=== PATIENT | female | born 1960 | race Caucasian/White ===

== ENCOUNTER → 2017-06-09 | Outpatient (CLI) | payer BC ==
--- NOTE | 2017-06-09 09:30 | RADIOLOGY REPORT (SQ) ---
EXAM DESCRIPTION: CT ABD/PELVIS WITH IV ORAL COMPLETED DATE/TIME: 06/09/2017 8:21 am REASON FOR STUDY: LUQ PAIN (R10.12) R10.12 LEFT UPPER QUADRANT PAIN COMPARISON: November 2015 TECHNIQUE: CT scan of the abdomen and pelvis performed using helical scanning technique with dynamic intravenous contrast injection and oral contrast. Images reviewed with lung, soft tissue, and bone w indows. Reconstructed coronal and sagittal MPR images reviewed. Delayed images for evaluation of the urinary system also acquired. All images stored on PACS. All CT scanners at this facility use dose modulation, iterative reconstruction, and/or weight based d osing when appropriate to reduce radiation dose to as low as reasonably achievable (ALARA). [facility]: Dose Right [facility]: CareDose [facility]: Dose Right [facility]: Teradose 4D [facility]: mphoria CONTRAST TYPE AND DOSE: contrast/concentration: Isovue 370.00 mg/ml; Total Contrast Delivered: 100.0 ml; Total Saline Delivered: 62.0 ml RENAL FUNCTION: Creatinine 0.7 RADIATION DOSE: CT Rad equipment meets quality standard of care and radiation dose reduction techniq ues were employed. CTDIvol: 14.1 - 16.2 mGy. DLP: 1512 mGy-cm.. LIMITATIONS: None. FINDINGS: LOWER CHEST: No significant findings. No nodules or infiltrates. LIVER: There is a focal area of contrast enhancement in the right lobe of the liver inferiorly best s een on image number 33 in the arterial phase which is not identified on the delayed images. A smalle r area of similar appearance was identified on the previous study. The differential possibilities wo uld include an hepatic hemangioma, transient hepatic attenuation difference, or a hypervascular mass. If clinically warranted MRI may be of value for further evaluation. No other focal hepatic abnorma lities were identified. SPLEEN: Normal size. No focal lesions. PANCREAS: No masses. No significant calcifications. No adjacent inflammation or peripancreatic fluid collections. Pancreatic duct not dilated. GALLBLADDER: No identified stones by CT criteria. No inflammatory changes to suggest cholecystitis. ADRENAL GLANDS: No significant masses or asymmetry. RIGHT KIDNEY AND URETER: No solid masses. No significant calcifications. No hydronephrosis or hyd roureter. LEFT KIDNEY AND URETER: No solid masses. No significant calcifications. No hydronephrosis or hydr oureter. AORTA AND VESSELS: No aneurysm. No dissection. Renal arteries, SMA, celiac without stenosis. RETROPERITONEUM: No retroperitoneal adenopathy, hemorrhage or masses. BOWEL AND PERITONEAL CAVITY: No masses or inflammatory changes. No free fluid or peritoneal masses. APPENDIX: Normal. PELVIS: No mass. No free fluid. Normal bladder. ABDOMINAL WALL: No masses. No hernias. BONES: No significant or acute findings. OTHER: No other significant finding. IMPRESSION: Focal area of contrast enhancement in the right lobe of the liver as noted above with di fferential possibilities as noted above. If further workup is deemed clinically warranted I would re commend MRI. No other significant intra-abdominal or pelvic abnormalities were identified. Other fi ndings as noted above. TECHNICAL DOCUMENTATION: JOB ID: [id number] Quality ID # [id number]: Final reports with documentation of one or more dose reduction techniques (e.g., Au tomated exposure control, adjustment of the mA and/or kV according to patient size, use of iterative reconstruction technique) 2010 [employer]- All Rights Reserved
== END ==
LOC: RAD 07:39
PROVIDERS: ATTEND Surgery
DX: R10.12 Left upper quadrant pain (principal)
CPT/HCPCS: 74177; 82565

== ENCOUNTER → 2017-06-19 | Outpatient (CLI) | payer BC ==
--- NOTE | 2017-06-19 11:33 | RADIOLOGY REPORT (SQ) ---
EXAM DESCRIPTION: MRI ABDOMEN WITH COMPLETED DATE/TIME: 06/19/2017 9:24 am REASON FOR STUDY: LIVER LESION K76.89 OTHER SPECIFIED DISEASES OF LIVER COMPARISON: CT studies from 06/09/2017 and 12/12/2015. TECHNIQUE: T1, T1 in and out of phase, T2 fat sat, T1 post gadolinium sequences with attention to th e liver. CONTRAST TYPE AND DOSE: 20 mL Prohance. RENAL FUNCTION: GFR > 60. LIMITATIONS: None. FINDINGS: LIVER: Normal contours. Hyperintense T2 lesion in the right hepatic lobe inferiorly it me asures up to 1.6 cm transverse dimension maximally. There is avid early enhancement without signific ant washout. No other lesions. SPLEEN: Normal size. No focal lesions. PANCREAS: No masses. No adjacent inflammation or peripancreatic fluid collections. Pancreatic duct no t dilated. GALLBLADDER: No masses. No stones. No gallbladder wall thickening or pericholecystic fluid. ADRENAL GLANDS: No significant masses or asymmetry. RIGHT KIDNEY AND URETER: No masses. No hydronephrosis. LEFT KIDNEY AND URETER: No masses. No hydronephrosis. AORTA AND VESSELS: No aneurysm. No dissection. Renal arteries, SMA, celiac without stenosis. RETROPERITONEUM: No retroperitoneal adenopathy, hemorrhage or masses. BOWEL: No visualized masses. No inflammation. No significant dilatation. ABDOMINAL WALL AND PERITONEUM: No hernias. No free fluid. BONES: No acute or significant findings. OTHER: No other significant finding. IMPRESSION: 1. The tiny liver lesion remains relatively indeterminate. Suspect a flash filling dede ngioma or other tiny vascular lesion. MR characteristics not suggestive of transient hepatic attenua tion difference as the lesion persists on delayed scanning. No suspicious washout. As noted previou sly, this looks more conspicuous compared to 2016. Possibly related to differences in technique betw een the studies. Longer term imaging followup may be warranted. Given the size and location of thi s lesion, not felt to be readily amenable to biopsy. TECHNICAL DOCUMENTATION: JOB ID: [id number]- All Rights Reserved
== END ==
LOC: RAD 07:57
PROVIDERS: ATTEND Surgery
DX: K76.9 Liver disease, unspecified (principal)
CPT/HCPCS: 74182; A9576

== ENCOUNTER 2017-07-20 08:03 | Day surgery (SDC) | payer BC, OTHER ==
[~2017-07-20 08:03] MED LIST: FENTANYL CITRATE INJ/PF 100 MCG/2 ML AMPUL ONE; FLUMAZENIL INJ 0.5 MG/5 ML VIAL ONE; GLYCOPYRROLATE INJ 0.4 MG/2 ML VIAL ONE; MIDAZOLAM 2 MG/2 ML INJ ONE; NALOXONE HCL INJ/PF 0.4 MG/1 ML SDV ONE; ONDANSETRON HCL INJ/PF 4 MG/2 ML SDV ONE
[2017-07-20] MEDS ORDERED: GLUCAGON,HUMAN RECOMB 1 MG INJ ONE (08:04)
[2017-07-20] MEDS ORDERED: EPINEPHRINE INJ 1 MG/10 ML DISP.SYRIN ONE (08:04)
[2017-07-20] MEDS: MIDAZOLAM 2 MG/2 ML INJ ONE ×2 (09:14→09:28)
[2017-07-20 09:15] LABS: HEMATOCRIT 40.7 % (36.0-47.0); HEMOGLOBIN 14.1 g/dL (12.0-15.5); MEAN CORPUSCULAR HEMOGLOBIN 33.1 pg (27.0-33.4); MEAN CORPUSCULAR HGB CONC 34.5 g/dL (32.0-36.0); MEAN CORPUSCULAR VOLUME 96 fl (80-97); PLATELET COUNT 299 10^3/uL (150-450); RED BLOOD COUNT 4.25 10^6/uL (3.72-5.28); RED CELL DISTRIBUTION WIDTH 12.2 % (11.5-14.0); WHITE BLOOD COUNT 7.6 10^3/uL (4.0-10.5)
[2017-07-20 09:33] LABS: ALANINE AMINOTRANSFERASE 28 U/L (9-52); ALBUMIN 3.9 g/dL (3.5-5.0); ALKALINE PHOSPHATASE 54 U/L (38-126); ANION GAP 7 (5-19); ASPARTATE AMINO TRANSFERASE 18 U/L (14-36); BILIRUBIN,DIRECT 0.3 mg/dL (0.0-0.4); BILIRUBIN,TOTAL 0.3 mg/dL (0.2-1.3); BLOOD UREA NITROGEN 13 mg/dL (7-20); CALCIUM 9.1 mg/dL (8.4-10.2); CARBON DIOXIDE 29 mmol/L (22-30); CHLORIDE 107 mmol/L (98-107); GLUCOSE 90 mg/dL (75-110); POTASSIUM 3.9 mmol/L (3.6-5.0); SODIUM 142.6 mmol/L (137-145); TOTAL PROTEIN 6.2 g/dL (6.3-8.2)
--- NOTE | 2017-07-20 09:46 | Operative Report ---
Operative Report DATE OF SURGERY: 07/20/17 PREOPERATIVE DIAGNOSIS: Gastroesophageal reflux disease POSTOPERATIVE DIAGNOSIS: Gastro esophageal reflux disease, small hiatal hernia, distal esophagitis and mild gastritis. OPERATION: Esophagogastroduodenoscopy with antral biopsy and distal esophageal biopsies. SURGEON: NAVIN NUNO ANESTHESIA: Moderate Sedation TISSUE REMOVED OR ALTERED: Antral biopsy. Distal esophageal four-quadrant biopsy. COMPLICATIONS: None ESTIMATED BLOOD LOSS: Minimal INTRAOPERATIVE FINDINGS: Very mild erythema of the gastric mucosa but no ulcers and no erosions seen. Small hiatal hernia. Irregularity at the GE junction. But no ulcerations seen. PROCEDURE: Informed consent was obtained. Patient was brought to the endoscopy suite. IV sedation with Versed and fentanyl was administered. Endoscope was passed via the patient's mouth it was fed down to the second portion of the duodenum. Duodenum appeared to be normal. The stomach had very mild erythema but no ulcers no erosions. Retroflexed view demonstrated a small hiatal hernia. Antral biopsies were taken. At the distal esophagus at the GE junction there was slight mucosal irregularity but no ulcerations no masses. Four-quadrant gastroesophageal junction biopsies were taken to rule out Ramsay's esophagus. Remainder of the esophagus appeared normal. Patient tolerated procedure well with no apparent complications and was taken to the recovery area in stable condition. Very mild esophagitis and gastritis seen. Fairly minimal findings. Suspect that patient does have some gastroesophageal reflux disease symptoms. Will manage conservatively. Will follow up with the patient next week.
--- NOTE | 2017-07-20 09:51 | PDOC DISCHARGE SUMMARY ---
Discharge Summary (SDC) - Discharge Final Diagnosis: Gastroesophageal reflux disease. Mild gastritis. Small hiatal hernia. Date of Surgery: 07/20/17 Discharge Date: 07/20/17 Condition: Good Treatment or Instructions: Esophagogastroduodenoscopy with esophageal and gastric biopsies. May discharge patient home when met discharge criteria. Follow-up with me next week. Referrals: KALLIE SNELL MD [Primary Care Provider] - Discharge Diet: As Tolerated Discharge Activity: Activity As Tolerated Report the Following to Your Physician Immediately: Unusual Bleeding
[2017-07-20 11:52] VITALS: BP 148/79
--- NOTE | 2017-07-20 11:56 | PDOC CONSULTATION ---
Consultation Consult Date: 07/20/17 Attending physician:: NAVIN NUNO Consult reason:: Bradycardia History of Present Illness Admission Date/PCP: KALLIE SNELL MD Patient complains of: No complaints patient feels fine History of Present Illness: ROSLYN SILVERMAN is a 57 year old female, who was seen in recovery unit of the endoscopy suite. Patient was recovering in the endoscopy suite, the nurse went to discharge her but she was noted to have heart rate in the 30s. A rhythm strip was obtained from the bedside monitor which showed sinus bradycardia with heart rate in the 40s. A subsequent EKG was obtained, it showed sinus bradycardia, without any acute ST-T wave changes. QS complex noted in V1 and V2 felt to be related to lead placement. On repeated questioning patient denied any chest pain, shortness of breath, nausea, vomiting. She did complain of a headache which she claims is from caffeine withdrawal. Patient does give history of smoking but denied any prior history of heart problems. Patient does have a history of loud snoring. Past Medical History Cardiac Medical History: Reports: Hyperlipidema Denies: Coronary Artery Disease, Myocardial Infarction, Hypertension Pulmonary Medical History: Denies: Asthma, Bronchitis, Chronic Obstructive Pulmonary Disease (COPD), Pneumonia Neurological Medical History: Denies: Seizures Endocrine Medical History: Reports: Hypothyroidism GI Medical History: Denies: Hepatitis, Hiatal Hernia Musculoskeltal Medical History: Reports: Arthritis Hematology: Denies: Anemia, Sickle Cell Disease Past Surgical History Past Surgical History: Reports: Hysterectomy Denies: Amputation, Mastectomy, Pacemaker Social History Information Source: Patient Smoking Status: Current Every Day Smoker - Advance Directive Resuscitation Status: Full Code Surrogate healthcare decision maker:: Patient's daughter is the surrogate decision maker for the time being Family History Family History: Hypertension Parental Family History Reviewed: Yes Children Family History Reviewed: Yes Sibling(s) Family History Reviewed.: Yes Medication/Allergy Home Medications: Alprazolam [Xanax 0.25 mg Tablet] 0.25 mg PO PRN PRN 09/12/12 Ascorbic Acid [Vitamin C] 1 tab PO DAILY 09/12/12 Calcium/Magnesium/Vit D3 [Calcium 500 mg Tablet] 1 each PO DAILY 09/12/12 Fiber [Fiber Choice] 1 each PO DAILY 09/12/12 Hydrochlorothiazide 25 mg PO DAILY 09/12/12 Levothyroxine Sodium [Synthroid 0.075 mg Tablet] 75 mcg PO DAILY 09/12/12 Multivitamin [Multi-Vitamin Daily] 1 each PO DAILY 09/12/12 Ulmer-3 Fatty Acids [Fish Oil] 300 mg PO DAILY 09/12/12 Citalopram Hydrobromide [Citalopram HBr] 10 mg PO DAILY 07/19/17 Lovastatin [Altoprev] 20 mg PO QHS 07/19/17 Allergies/Adverse Reactions: sulfamethoxazole [From Bactrim] Allergy (Mild, Verified 07/20/17 08:17) itchy trimethoprim [From Bactrim] Allergy (Mild, Verified 07/20/17 08:17) itchy Review of Systems Review of Systems: Please see history of present illness and past medical history as wall. Constitutional: No fever or chills reported. Head : No recent chronic headaches, recent head injury. Eyes: No recent eye pain, diplopia, redness, discharge, acute visual changes. Ears: No recent chronic ear pain, acute hearing loss, ear discharge. Oral cavity: No recent ulcerations, bleeding, oral cavity discomfort. Neck: No recent acute neck pain reported. Hematologic: No recent easy bruising or bleeding or hematologic malignancy reported. Lymphatic: No recent lymphatic malignancy, chronic lymphadenopathy reported yet Cardiovascular system review: See history of present illness. No prior history of sustained palpitations, syncope or near syncope. Respiratory system review: No recent chronic cough, hemoptysis, blood clots in the lungs reported. Mild Shortness of breath on exertion Gastrointestinal system review: Negative for any recent acute or chronic abdominal pain, hematemesis, melena, recent change in bowel habits. Genitourinary system review: No recent acute or chronic hematuria, flank pain, UTI etc. reported. Skin system review: Negative for any recent abnormal bruising, no rash, no pruritus reported. Neurologic: No prior history of strokes, mini strokes, seizure disorder. Psychologic: No history of major psychosis or major depression reported. Musculoskeletal: Minor aches and pains reported. No acute joint swelling reported. Endocrine: No recent polyuria, polydipsia, recent heat or cold intolerance. Physical Exam Vital Signs: Temp Pulse Resp BP Pulse Ox 97.6 F 59 L 16 146/58 H 98 07/20/17 10:35 07/20/17 10:35 07/20/17 10:35 07/20/17 10:35 07/20/17 10:35 Intake & Output 07/19/17 07/20/17 07/21/17 06:59 06:59 06:59 Intake Total 790 Balance 790 Weight 95.25 kg 95.25 kg Exam: GENERAL: well-nourished and in no acute distress. Alert and oriented x3 HEAD: Atraumatic, normocephalic. EYES: Pupils equal round and reactive to light, extraocular movements intact, sclera anicteric, conjunctiva are normal. ENT: TMs normal, nares patent, oropharynx clear without exudates. Moist mucous membranes. No oral ulcerations or bleeding gums noted NECK: supple without lymphadenopathy. Trachea is central. No cervical or axillary lymphadenopathy noted. Carotids are 2+, JVD WNL, mallipati class IV and a narrow hard palate. LUNGS: Respiration seems nonlabored, no significant accessory muscle action noted. Breath sounds clear to auscultation bilaterally and equal noted. No wheezes rales or rhonchi noted. No significant dullness noted on percussion. CHEST: Palpation of the chest wall shows no significant chest wall tenderness. No other significant abnormalities noted. 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 ABDOMEN: Soft, no significant tenderness appreciated, normoactive bowel sounds. No guarding, no rebound. No rigidity noted . No masses appreciated. EXTREMITIES: Pedal pulses are 1-2+, no calf tenderness noted. No clubbing or cyanosis.trace to 1+ pedal edema noted NEUROLOGICAL: Focused neurological exam showed no significant neurologic deficit. Normal speech, no focal weakness appreciated. PSYCH: Normal mood, normal affect. Judgment and insight within normal limits. SKIN: No significant ecchymosis, rash, ulcerations or signs of pruritus noted. MUSCULOSKELETAL EXAM: No significant joint swelling noted. Results Laboratory Results: 07/20/17 08:34 07/20/17 08:34 07/20/17 07/20/17 08:34 08:34 WBC 7.6 RBC 4.25 Hgb 14.1 Hct 40.7 MCV 96 MCH 33.1 MCHC 34.5 RDW 12.2 Plt Count 299 Sodium 142.6 Potassium 3.9 Chloride 107 Carbon Dioxide 29 Anion Gap 7 BUN 13 Creatinine 0.57 Est GFR ( Amer) > 60 Est GFR (Non-Af Amer) > 60 Glucose 90 Calcium 9.1 Total Bilirubin 0.3 AST 18 ALT 28 Alkaline Phosphatase 54 Total Protein 6.2 L Albumin 3.9 EKG Comments: Twelve-lead EKG obtained shows sinus rhythm, QS complex V1 and V2 felt to be related to lead placement. Assessment & Plan - Diagnosis (1) Bradycardia Is this a current diagnosis for this admission?: Yes (2) Tobacco abuse Is this a current diagnosis for this admission?: Yes (3) Dyslipidemia Is this a current diagnosis for this admission?: Yes (4) Sleep disorder Is this a current diagnosis for this admission?: Yes (5) Obesity Qualifiers: Obesity type: unspecified obesity type Obesity classification: unspecified obesity classification Is this a current diagnosis for this admission?: Yes - Notes Notes: Bradycardia: This is felt to be related to possible vagal stimulation although patient denied any symptoms of nausea, vomiting or any other vagal symptoms currently patient heart rate has improved. Since patient is relatively young and never had any sustained palpitations, syncope, near syncope and currently completely asymptomatic have cleared patient for discharge with the agreement that she shows up in my office tomorrow to have a event monitor placed, 2D echocardiogram and a stress test scheduled. Tobacco abuse: Patient is trying to quit. Have informed that our office will be happy to help in that regard. Side effects of continued tobacco use discussed. Dyslipidemia: Patient to continue current statin therapy. Will obtain a lipid panel in the office if needed tomorrow. Sleep disorder: Patient describes history of loud habitual snoring. She does have family history of sleep apnea. Patient will benefit from a sleep study and this will be scheduled. Obesity: Patient has been encouraged in weight loss. - Time Time Spent: 30 to 50 Minutes - CODE STATUS was discussed, patient remains full code. Surrogate decision-maker unchanged. Multiple medical problems were addressed. More than 50% of the time spent coordinating care, discussing management plans with involved caregivers. Management plans discussed with involved personnels. Medical decision making was of moderate to high complexity , patient's has multiple comorbidities. Medications reviewed and adjusted accordingly: Yes
--- NOTE | 2017-07-20 12:55 | EKG REPORT ---
SEVERITY:- ABNORMAL ECG - SINUS RHYTHM PROBABLE ANTEROSEPTAL INFARCT, AGE INDETERM : Confirmed by: Gage Cortez MD 20-Jul-2017 12:54:36
== END 2017-07-20 12:00 | disposition home or self-care (01) ==
LOC: END 08:03
PROVIDERS: ATTEND Surgery
PROC: 0DB68ZX Excision of Stomach, Via Natural or Artificial Opening Endoscopic, Diagnostic (ICD-10-PCS; 2017-07-20)
PROC: 0DB48ZX Excision of Esophagogastric Junction, Via Natural or Artificial Opening Endoscopic, Diagnostic (ICD-10-PCS; principal; 2017-07-20 09:15)
DX: K21.0 Gastro-esophageal reflux disease with esophagitis (principal); K44.9 Diaphragmatic hernia without obstruction or gangrene; K29.70 Gastritis, unspecified, without bleeding; E78.00 Pure hypercholesterolemia, unspecified; E30.9 Disorder of puberty, unspecified; F17.210 Nicotine dependence, cigarettes, uncomplicated; Z79.899 Other long term (current) drug therapy; Z79.82 Long term (current) use of aspirin; Z88.3 Allergy status to other anti-infective agents
CPT/HCPCS: 43239; 36415; 85027; 80053; 82105; 88305 ×2; 93005; 93010; J2250; J3010; J0171; J1610; J2310; J2405; J3490

== ENCOUNTER 2017-07-23 09:42 | Emergency (ER) | payer BC, OTHER ==
--- NOTE | 2017-07-23 10:45 | ER Document Report ---
ED Medical Screen (RME) - General Chief Complaint: Chest Pain Stated Complaint: ABNORMAL LABS Time Seen by Provider: 07/23/17 10:31 Mode of Arrival: Ambulatory Information source: Patient Notes: 57-year-old female with a history of anxiety, hypothyroidism, recent diagnosis of hiatal hernia and GERD, arthritis who was referred to the emergency room by Dr. Valadez because of tachycardia on heart rate monitor. Patient denies chest pain. Patient states she was anxious this morning. He was not at a pressure portion to what she normally experiences. She then got a call from the insurance claims representative saying that she had tachycardia on the monitor. Currently, she is in normal sinus rhythm and is without complaints. TRAVEL OUTSIDE OF THE [place] IN LAST 30 DAYS: No - Related Data Allergies/Adverse Reactions: sulfamethoxazole [From Bactrim] Allergy (Mild, Verified 07/23/17 10:28) itchy trimethoprim [From Bactrim] Allergy (Mild, Verified 07/23/17 10:28) itchy Past Medical History - Social History Chew tobacco use (# tins/day): No Frequency of alcohol use: None Drug Abuse: None - Past Medical History Cardiac Medical History: Reports: Hx Hypercholesterolemia Denies: Hx Coronary Artery Disease, Hx Heart Attack, Hx Hypertension Pulmonary Medical History: Denies: Hx Asthma, Hx Bronchitis, Hx COPD, Hx Pneumonia Neurological Medical History: Denies: Hx Cerebrovascular Accident, Hx Seizures Endocrine Medical History: Reports: Hx Hypothyroidism Renal/ Medical History: Denies: Hx Peritoneal Dialysis GI Medical History: Denies: Hx Hepatitis, Hx Hiatal Hernia, Hx Ulcer Musculoskeltal Medical History: Reports Hx Arthritis Psychiatric Medical History: Reports: Hx Anxiety Infectious Medical History: Denies: Hx Hepatitis Past Surgical History: Reports: Hx Hysterectomy. Denies: Hx Mastectomy, Hx Open Heart Surgery, Hx Pacemaker - Immunizations Hx Diphtheria, Pertussis, Tetanus Vaccination: Yes Physical Exam - Vital signs Vitals: Temp Pulse Resp BP Pulse Ox 98.2 F 91 16 139/79 H 97 07/23/17 09:55 07/23/17 09:55 07/23/17 09:55 07/23/17 09:55 07/23/17 09:55 Course - Vital Signs Vital signs: Temp Pulse Resp BP Pulse Ox 98.2 F 91 16 139/79 H 97 07/23/17 09:55 07/23/17 09:55 07/23/17 09:55 07/23/17 09:55 07/23/17 09:55
[2017-07-23 11:11] LABS: ABSOLUTE BASOPHILS # (AUTO) 0.1 10^3/uL (0.0-0.2); ABSOLUTE EOSINOPHILS # (AUTO) 0.1 10^3/uL (0.0-0.6); ABSOLUTE LYMPHOCYTES (AUTO) 3.1 10^3/uL (0.5-4.7); ABSOLUTE MONOCYTES (AUTO) 0.7 10^3/uL (0.1-1.4); ABSOLUTE NEUT (AUTO) 6.1 10^3/uL (1.7-8.2); BASOPHILS % (AUTO) 0.7 % (0-2); EOSINOPHILS % (AUTO) 1.2 % (0-6); HEMATOCRIT 44.1 % (36.0-47.0); HEMOGLOBIN 15.1 g/dL (12.0-15.5); LYMPHOCYTES % (AUTO) 30.7 % (13-45); MEAN CORPUSCULAR HEMOGLOBIN 32.8 pg (27.0-33.4); MEAN CORPUSCULAR HGB CONC 34.2 g/dL (32.0-36.0); MEAN CORPUSCULAR VOLUME 96 fl (80-97); MONOCYTES % (AUTO) 6.5 % (3-13); PLATELET COUNT 349 10^3/uL (150-450); RED CELL DISTRIBUTION WIDTH 12.4 % (11.5-14.0); SEGMENTED NEUTROPHILS % (AUTO) 60.9 % (42-78); TOTAL CELLS COUNTED % (AUTO) 100 %; WHITE BLOOD COUNT 10.1 10^3/uL (4.0-10.5)
--- NOTE | 2017-07-23 11:19 | RADIOLOGY REPORT (SQ) ---
EXAM DESCRIPTION: CHEST PA/LAT COMPLETED DATE/TIME: 07/23/2017 11:07 am REASON FOR STUDY: tachy COMPARISON: None. EXAM PARAMETERS: NUMBER OF VIEWS: two views TECHNIQUE: Digital Frontal and Lateral radiographic views of the chest acquired. RADIATION DOSE: NA LIMITATIONS: none FINDINGS: LUNGS AND PLEURA: No opacities, masses or pneumothorax. No pleural effusion. MEDIASTINUM AND HILAR STRUCTURES: No masses or contour abnormalities. HEART AND VASCULAR STRUCTURES: Heart normal size. No evidence for failure. BONES: No acute findings. HARDWARE: None in the chest. OTHER: No other significant finding. IMPRESSION: NO SIGNIFICANT RADIOGRAPHIC FINDING IN THE CHEST. TECHNICAL DOCUMENTATION: JOB ID: [id number] [employer]- All Rights Reserved Reading location - IP/workstation name: [email or web address]
[2017-07-23 11:30] LABS: ALANINE AMINOTRANSFERASE 32 U/L (9-52); ALBUMIN 5.1 g/dL (3.5-5.0); ALKALINE PHOSPHATASE 71 U/L (38-126); ANION GAP 17 (5-19); ASPARTATE AMINO TRANSFERASE 25 U/L (14-36); BILIRUBIN,DIRECT 0.1 mg/dL (0.0-0.4); BILIRUBIN,TOTAL 0.3 mg/dL (0.2-1.3); BLOOD UREA NITROGEN 11 mg/dL (7-20); CALCIUM 10.3 mg/dL (8.4-10.2); CARBON DIOXIDE 24 mmol/L (22-30); CHLORIDE 103 mmol/L (98-107); CREATINE KINASE 65 U/L (30-135); GLUCOSE 102 mg/dL (75-110); POTASSIUM 4.3 mmol/L (3.6-5.0); SODIUM 143.8 mmol/L (137-145); TOTAL PROTEIN 7.2 g/dL (6.3-8.2)
[2017-07-23 11:41] LABS: CREATINE KINASE MB 0.68 ng/mL (<4.55)
[2017-07-23 11:45] LABS: TROPONIN I < 0.012 ng/mL
--- NOTE | 2017-07-23 13:16 | ER Document Report ---
ED General - General Chief Complaint: Chest Pain Stated Complaint: ABNORMAL LABS Time Seen by Provider: 07/23/17 10:31 Mode of Arrival: Ambulatory Information source: Patient, Friend, Outside Facility Records TRAVEL OUTSIDE OF THE [place] IN LAST 30 DAYS: No - HPI Patient complains to provider of: rapid heart rate Onset: Other - 932 this am Onset/Duration: Sudden Quality of pain: Pressure - chest Associated symptoms: None Exacerbated by: Denies Relieved by: Denies Similar symptoms previously: No Recently seen / treated by doctor: Yes Notes: Pt. had endoscopy this past Wednesday and after procedure her heart rate droppped to 30s. Pt. saw dr. Bloom and was placed on heart rate monnitor. This am, pt. was at work when the heart rate monitor personnel called to see if she was ok because her heart rate was rapid. patient states she had a liitle chest pressure and felt like she was having one of her anxiety attacks. Pt. states she takes xanax daily(ususally at night). Patient was instructed to come to the ED immediately for evaluation. - Related Data Allergies/Adverse Reactions: sulfamethoxazole [From Bactrim] Allergy (Mild, Verified 07/23/17 10:28) itchy trimethoprim [From Bactrim] Allergy (Mild, Verified 07/23/17 10:28) itchy Past Medical History - General Information source: Patient - Social History Smoking Status: Current Every Day Smoker Chew tobacco use (# tins/day): No Smoking Education Provided: Yes - pt. quitting August 07 (started wellbutrin) Frequency of alcohol use: None Drug Abuse: None Lives with: Family Family History: Hypertension Patient has suicidal ideation: No Patient has homicidal ideation: No - Past Medical History Cardiac Medical History: Reports: Hx Hypercholesterolemia Denies: Hx Coronary Artery Disease, Hx Heart Attack, Hx Hypertension Pulmonary Medical History: Denies: Hx Asthma, Hx Bronchitis, Hx COPD, Hx Pneumonia Neurological Medical History: Denies: Hx Cerebrovascular Accident, Hx Seizures Endocrine Medical History: Reports: Hx Hypothyroidism Renal/ Medical History: Reports: None. Denies: Hx Peritoneal Dialysis GI Medical History: Reports: Hx Endoscopy - showed inflammation duodenum and stomach. Denies: Hx Hepatitis, Hx Hiatal Hernia, Hx Ulcer Musculoskeltal Medical History: Reports Hx Arthritis Psychiatric Medical History: Reports: Hx Anxiety Traumatic Medical History: Reports: None Infectious Medical History: Reports: None. Denies: Hx Hepatitis Past Surgical History: Reports: Hx Hysterectomy. Denies: Hx Mastectomy, Hx Open Heart Surgery, Hx Pacemaker - Immunizations Hx Diphtheria, Pertussis, Tetanus Vaccination: Yes Review of Systems - Review of Systems Constitutional: No symptoms reported EENT: No symptoms reported Cardiovascular: See HPI Respiratory: No symptoms reported Gastrointestinal: No symptoms reported Genitourinary: No symptoms reported Female Genitourinary: No symptoms reported Musculoskeletal: No symptoms reported Skin: No symptoms reported Hematologic/Lymphatic: No symptoms reported Neurological/Psychological: No symptoms reported Physical Exam - Vital signs Vitals: Temp Pulse Resp BP Pulse Ox 98.2 F 91 16 139/79 H 97 07/23/17 09:55 07/23/17 09:55 07/23/17 09:55 07/23/17 09:55 07/23/17 09:55 Course - Re-evaluation Re-evalutation: 07/23/17 13:16 Heart rate monitor demonstrated aflutter at 230 BPM at 0922 am today 07/23/17 13:18 Chest X-Ray 07/23/17 10:43 IMPRESSION: NO SIGNIFICANT RADIOGRAPHIC FINDING IN THE CHEST. Labs- All tests 24 hr 07/23/17 07/23/17 07/23/17 10:55 10:55 10:55 WBC 10.1 RBC 4.60 Hgb 15.1 Hct 44.1 MCV 96 MCH 32.8 MCHC 34.2 RDW 12.4 Plt Count 349 Seg Neutrophils % 60.9 Lymphocytes % 30.7 Monocytes % 6.5 Eosinophils % 1.2 Basophils % 0.7 Absolute Neutrophils 6.1 Absolute Lymphocytes 3.1 Absolute Monocytes 0.7 Absolute Eosinophils 0.1 Absolute Basophils 0.1 Sodium 143.8 Potassium 4.3 Chloride 103 Carbon Dioxide 24 Anion Gap 17 BUN 11 Creatinine 0.62 Est GFR ( Amer) > 60 Est GFR (Non-Af Amer) > 60 Glucose 102 Calcium 10.3 H Total Bilirubin 0.3 Direct Bilirubin 0.1 Neonat Total Bilirubin Not Reportable Neonat Direct Bilirubin Not Reportable Neonat Indirect Bili Not Reportable AST 25 ALT 32 Alkaline Phosphatase 71 Creatine Kinase 65 CK-MB (CK-2) 0.68 Troponin I < 0.012 Total Protein 7.2 Albumin 5.1 H TSH 07/23/17 10:55 WBC RBC Hgb Hct MCV MCH MCHC RDW Plt Count Seg Neutrophils % Lymphocytes % Monocytes % Eosinophils % Basophils % Absolute Neutrophils Absolute Lymphocytes Absolute Monocytes Absolute Eosinophils Absolute Basophils Sodium Potassium Chloride Carbon Dioxide Anion Gap BUN Creatinine Est GFR ( Amer) Est GFR (Non-Af Amer) Glucose Calcium Total Bilirubin Direct Bilirubin Neonat Total Bilirubin Neonat Direct Bilirubin Neonat Indirect Bili AST ALT Alkaline Phosphatase Creatine Kinase CK-MB (CK-2) Troponin I Total Protein Albumin TSH 1.61 07/23/17 13:[address] Bloom who saw patient in ED and started on Multaq and metoprolol. He stated he will also set up EP consult. - Vital Signs Vital signs: Temp Pulse Resp BP Pulse Ox 98.2 F 91 16 139/79 H 97 07/23/17 09:55 07/23/17 09:55 07/23/17 09:55 07/23/17 09:55 07/23/17 09:55 - Laboratory Result Diagrams: 07/23/17 10:55 07/23/17 10:55 Laboratory results interpreted by me: 07/23/17 10:55 Calcium 10.3 H Albumin 5.1 H - EKG Interpretation by Me EKG shows normal: Sinus rhythm - 76 bpm When compared to previous EKG there are: No significant change Discharge - Discharge Clinical Impression: Atrial flutter, Tobacco abuse, Dyslipidemia Condition: Stable Disposition: HOME, SELF-CARE Additional Instructions: Start multaq and metoprolol as prescribed. Follow up with your physician tomorrow for further care or return to the ED IMMEDIATELY if symptoms worsen or new concerns occur. If you cannot afford to follow up with your primary care physician a list of low cost clinics have been provided at the end of your discharge papers as well. Referrals: KALLIE SNELL MD [Primary Care Provider] - Follow up as needed MARCELINA BLOOM MD [ACTIVE STAFF] - Follow up in 3-5 days
[2017-07-23] MEDS ORDERED: DRONEDARONE HYDROCHLORIDE 400 MG TABLET PO ONE (13:20)
[2017-07-23 13:44] VITALS: BP 130/73
--- NOTE | 2017-07-23 14:26 | EKG REPORT ---
SEVERITY:- BORDERLINE ECG - SINUS RHYTHM PROBABLE LEFT ATRIAL ABNORMALITY BORDERLINE R WAVE PROGRESSION, ANTERIOR LEADS, CLINICAL CORRELATION NEEDED, CONSIDER AGE UNDETERMINED ANTEROSEPTAL OH. : Confirmed by: Gage Cortez MD 23-Jul-2017 14:26:25
--- NOTE | 2017-07-24 12:49 | PDOC CONSULTATION ---
Consultation Consult Date: 07/23/17 Attending physician:: SHREYA DOTSON Consult reason:: Atrial fibrillation with rapid ventricular response History of Present Illness Admission Date/PCP: KALLIE SNELL MD Patient complains of: Palpitations and anxiety History of Present Illness: ROSLYN SILVERMAN is a 57 year old female, known to me from recent consultation on the floor, recovery room of the endoscopy unit for severe bradycardia following an upper endoscopy procedure. Patient was subsequently placed on a heart monitor from the office. Patient was called at work this morning by the monitoring service saying that her heart was racing very fast at over 200 bpm and subsequently my office physician assistant manager pt called patient to come to the emergency room for further evaluation. In the emergency room, patient was noted to be in atrial fibrillation with severe increased ventricular response at over 220 bpm but patient surprisingly was noted to be stable. She denied any chest pain. She just felt fluttering in the chest. Patient denied any dizziness. Patient felt being anxious. Patient subsequently spontaneously converted to sinus rhythm. When I saw the patient in the ER, she was noted to be night sinus rhythm without any complaints of chest pains or shortness of breath. Heart rate was noted to be in the 70s. Patient was ordered to receive multaq 400 mg p.o. 1 dose, metoprolol succinate 25 mg p.o. 1 dose and then prescriptions were written for multaq at 400 mg p.o. twice daily and metoprolol succinate 25 mg p.o. twice daily. Patient was told to cone picker multaq samples at the office. Past Medical History Cardiac Medical History: Reports: Hyperlipidema Denies: Coronary Artery Disease, Myocardial Infarction, Hypertension Pulmonary Medical History: Denies: Asthma, Bronchitis, Chronic Obstructive Pulmonary Disease (COPD), Pneumonia Neurological Medical History: Denies: Seizures Endocrine Medical History: Reports: Hypothyroidism Renal/ Medical History: Reports: None GI Medical History: Denies: Hepatitis, Hiatal Hernia Musculoskeltal Medical History: Reports: Arthritis Traumatic Medical History: Reports: None Hematology: Denies: Anemia, Sickle Cell Disease Infectious Medical History: Reports: None Past Surgical History Past Surgical History: Reports: Hysterectomy Denies: Amputation, Mastectomy, Pacemaker Social History Information Source: Patient Lives with: Family Smoking Status: Current Every Day Smoker - Advance Directive Resuscitation Status: Full Code Family History Family History: Hypertension Parental Family History Reviewed: Yes Children Family History Reviewed: Yes Sibling(s) Family History Reviewed.: Yes Medication/Allergy Home Medications: Alprazolam [Xanax 0.25 mg Tablet] 0.25 mg PO PRN PRN 09/12/12 Ascorbic Acid [Vitamin C] 1 tab PO DAILY 09/12/12 Calcium/Magnesium/Vit D3 [Calcium 500 mg Tablet] 1 each PO DAILY 09/12/12 Fiber [Fiber Choice] 1 each PO DAILY 09/12/12 Hydrochlorothiazide 25 mg PO DAILY 09/12/12 Levothyroxine Sodium [Synthroid 0.075 mg Tablet] 75 mcg PO DAILY 09/12/12 Multivitamin [Multi-Vitamin Daily] 1 each PO DAILY 09/12/12 [place]-3 Fatty Acids [Fish Oil] 300 mg PO DAILY 09/12/12 Citalopram Hydrobromide [Citalopram HBr] 10 mg PO DAILY 07/19/17 Lovastatin [Altoprev] 20 mg PO QHS 07/19/17 Allergies/Adverse Reactions: sulfamethoxazole [From Bactrim] Allergy (Mild, Verified 07/23/17 10:28) itchy trimethoprim [From Bactrim] Allergy (Mild, Verified 07/23/17 10:28) itchy Review of Systems Review of Systems: Please see history of present illness and past medical history as wall. Constitutional: No fever or chills reported. Head : No recent chronic headaches, recent head injury. Eyes: No recent eye pain, diplopia, redness, discharge, acute visual changes. Ears: No recent chronic ear pain, acute hearing loss, ear discharge. Oral cavity: No recent ulcerations, bleeding, oral cavity discomfort. Neck: No recent acute neck pain reported. Hematologic: No recent easy bruising or bleeding or hematologic malignancy reported. Lymphatic: No recent lymphatic malignancy, chronic lymphadenopathy reported yet Cardiovascular system review: See history of present illness. History of anxiety/palpitations for last several weeks, intermittent. Respiratory system review: No recent chronic cough, hemoptysis, blood clots in the lungs reported. Mild Shortness of breath on exertion Gastrointestinal system review: Negative for any recent acute or chronic abdominal pain, hematemesis, melena, recent change in bowel habits. Genitourinary system review: No recent acute or chronic hematuria, flank pain, UTI etc. reported. Skin system review: Negative for any recent abnormal bruising, no rash, no pruritus reported. Neurologic: No prior history of strokes, mini strokes, seizure disorder. Psychologic: No history of major psychosis or major depression reported. Musculoskeletal: Minor aches and pains reported. No acute joint swelling reported. Endocrine: No recent polyuria, polydipsia, recent heat or cold intolerance. Physical Exam Vital Signs: Temp Pulse Resp BP Pulse Ox 98.2 F 91 14 130/73 H 96 07/23/17 09:55 07/23/17 09:55 07/23/17 13:01 07/23/17 13:01 07/23/17 13:01 Intake & Output 07/23/17 07/24/17 07/25/17 06:59 06:59 06:59 Weight 98.2 kg Exam: GENERAL: well-nourished and in no acute distress. Alert and oriented x3 HEAD: Atraumatic, normocephalic. EYES: Pupils equal round and reactive to light, extraocular movements intact, sclera anicteric, conjunctiva are normal. ENT: TMs normal, nares patent, oropharynx clear without exudates. Moist mucous membranes. No oral ulcerations or bleeding gums noted NECK: supple without lymphadenopathy. Trachea is central. No cervical or axillary lymphadenopathy noted. Carotids are 2+, JVD WNL LUNGS: Respiration seems nonlabored, no significant accessory muscle action noted. Breath sounds clear to auscultation bilaterally and equal noted. No wheezes rales or rhonchi noted. No significant dullness noted on percussion. CHEST: Palpation of the chest wall shows no significant chest wall tenderness. No other significant abnormalities noted. HEART: [place] [employer], No PSH, 1/6 IGNACIO aortic area, 1/6 lemus systolic murmur mitral area, no rubs, no gallops. ABDOMEN: Soft, no significant tenderness appreciated, normoactive bowel sounds. No guarding, no rebound. No rigidity noted . No masses appreciated. EXTREMITIES: Pedal pulses are 1-2+, no calf tenderness noted. No clubbing or cyanosis.trace to 1+ pedal edema noted NEUROLOGICAL: Focused neurological exam showed no significant neurologic deficit. Normal speech, no focal weakness appreciated. PSYCH: Normal mood, normal affect. Judgment and insight within normal limits. SKIN: No significant ecchymosis, rash, ulcerations or signs of pruritus noted. MUSCULOSKELETAL EXAM: No significant joint swelling noted. Results Laboratory Results: 07/23/17 10:55 07/23/17 10:55 07/23/17 07/23/17 10:55 10:55 Creatine Kinase 65 CK-MB (CK-2) 0.68 Troponin I < 0.012 EKG Comments: Sinus rhythm, QS complex V1 and V2 suggestive of prior anteroseptal myocardial infarction but relatively unchanged from before. Impressions: Chest X-Ray 07/23/17 10:43 IMPRESSION: NO SIGNIFICANT RADIOGRAPHIC FINDING IN THE CHEST. Assessment & Plan - Diagnosis (1) Atrial fibrillation Qualifiers: Atrial fibrillation type: paroxysmal Qualified Code(s): I48.0 - Paroxysmal atrial fibrillation Is this a current diagnosis for this admission?: Yes (2) Dyslipidemia Is this a current diagnosis for this admission?: Yes (3) Sleep disorder Is this a current diagnosis for this admission?: Yes (4) Tobacco abuse Is this a current diagnosis for this admission?: Yes (5) Hypertension Qualifiers: Hypertension type: essential hypertension Qualified Code(s): I10 - Essential (primary) hypertension Is this a current diagnosis for this admission?: Yes - Notes Notes: Patient presents with atrial fibrillation with rapid ventricular response. Patient had very few symptoms associated with it. However heart rate was extremely high therefore felt the need to place patient on multaq 400 mg p.o. twice daily and also metoprolol succinate 25 mg p.o. twice daily. Patient did have bradycardia postprocedure in the past therefore patient was informed possibility of tachycardia or bradycardia episode with need for permanent pacemaker may arise. However it is also possible that bradycardia postprocedure was due to vagal stimulation. It was felt that patient will benefit from continuing to wear the event monitor so that any bradycardia episode and tachycardia episode can be further characterized. Patient was asked to come to the office to cone picker multaq samples. However is multaq samples are not available, patient could be placed on Ranexa which has some effect in preventing atrial fibrillation. Patient to report any symptoms of syncope, near syncope. Patient was seen earlier in the week in private office when she was placed on event monitor and also scheduled for a 2D echo and nuclear stress test which she was asked to pursue. Patient also advised on weight loss, tobacco cessation. Patient was also placed on Wellbutrin, discussed possible side effect of Wellbutrin but patient claims that she has had similar but short lasting symptoms of heart racing and anxiety feeling even before Wellbutrin was started. Patient very interested in quitting smoking and therefore wanted to continue with the Wellbutrin therapy. - Time Time Spent: 30 to 50 Minutes - More than 50% of the time spent coordinating care , discussing management plans with involved caregivers. Management plans discussed with involved personnels. Medical decision making was of moderate to high complexity, patient's has multiple comorbidities. Medications reviewed and adjusted accordingly: Yes
== END 2017-07-23 13:44 | disposition home or self-care (01) ==
LOC: ER 09:42
DX: I48.92 Unspecified atrial flutter (principal); E78.5 Hyperlipidemia, unspecified; R07.9 Chest pain, unspecified; F17.200 Nicotine dependence, unspecified, uncomplicated; Z79.899 Other long term (current) drug therapy
CPT/HCPCS: 93005; 99285; 36415; 82553; 82550; 84443; 85025; 80053; 84484; 71046; 93010; J3490

== ENCOUNTER 2020-03-20 19:31 | Emergency (ER) | payer BC ==
--- NOTE | 2020-03-20 19:52 | ER Document Report ---
ED Medical Screen (RME) - General Chief Complaint: Abdominal Pain Stated Complaint: UPPER LEFT STOMACH PAIN RAIDATING TO THE BACK Time Seen by Provider: 03/20/20 19:46 Primary Care Provider: KALLIE SNELL MD [Primary Care Provider] - Follow up as needed Mode of Arrival: Ambulatory Information source: Patient Notes: 59-year-old female presented to ED for left upper quadrant abdominal pain. She states she did have some liquid stool 2-3 times yesterday but has had normal stools today. She is not having any vomiting but has been nauseated a couple times. She has had a previous history of gastritis. She states she did have a hysterectomy many years ago. She states she does smoke a pack a day does not drink alcohol or use any illicit drugs. She states she has not used alcohol since 99. Is alert oriented respirations regular nonlabored speaking in full sentences. She does have hypoactive bowel sounds. I have greeted and performed a rapid initial assessment of this patient. A comprehensive ED assessment and evaluation of the patient, analysis of test results and completion of medical decision making process will be conducted by an additional ED providers. TRAVEL OUTSIDE OF THE [place] IN LAST 30 DAYS: No - Related Data Allergies/Adverse Reactions: sulfamethoxazole [From Bactrim] Allergy (Mild, Verified 03/20/20 19:44) itchy trimethoprim [From Bactrim] Allergy (Mild, Verified 03/20/20 19:44) itchy Home Medications: HTN. DIABETIS. JIGH LIPIDS Past Medical History - Social History Frequency of alcohol use: None Drug Abuse: None - Past Medical History Cardiac Medical History: Reports: Hx Hypercholesterolemia Denies: Hx Coronary Artery Disease, Hx Heart Attack, Hx Hypertension Pulmonary Medical History: Denies: Hx Asthma, Hx Bronchitis, Hx COPD, Hx Pneumonia Neurological Medical History: Denies: Hx Cerebrovascular Accident, Hx Seizures Endocrine Medical History: Reports: Hx Hypothyroidism Renal/ Medical History: Denies: Hx Peritoneal Dialysis GI Medical History: Reports: Hx Endoscopy - showed inflammation duodenum and stomach. Denies: Hx Hepatitis, Hx Hiatal Hernia, Hx Ulcer Musculoskeltal Medical History: Reports Hx Arthritis Psychiatric Medical History: Reports: Hx Anxiety Infectious Medical History: Denies: Hx Hepatitis Past Surgical History: Reports: Hx Hysterectomy. Denies: Hx Mastectomy, Hx Open Heart Surgery, Hx Pacemaker - Immunizations Hx Diphtheria, Pertussis, Tetanus Vaccination: Yes Physical Exam - Vital signs Vitals: Temp Pulse Resp BP Pulse Ox 98.0 F 80 18 154/78 H 96 03/20/20 19:42 03/20/20 19:42 03/20/20 19:42 03/20/20 19:42 03/20/20 19:42 Course - Vital Signs Vital signs: Temp Pulse Resp BP Pulse Ox 98.0 F 80 18 154/78 H 96 03/20/20 19:42 03/20/20 19:42 03/20/20 19:42 03/20/20 19:42 03/20/20 19:42 Doctor's Discharge - Discharge Referrals: KALLIE SNELL MD [Primary Care Provider] - Follow up as needed
[2020-03-20 20:45] LABS: ABSOLUTE EOSINOPHILS # (AUTO) 0.2 10^3/uL (0.0-0.6); ABSOLUTE LYMPHOCYTES (AUTO) 2.8 10^3/uL (0.5-4.7); ABSOLUTE MONOCYTES (AUTO) 0.8 10^3/uL (0.1-1.4); ABSOLUTE NEUT (AUTO) 4.9 10^3/uL (1.7-8.2); BASOPHILS % (AUTO) 0.5 % (0-2); EOSINOPHILS % (AUTO) 1.8 % (0-6); HEMATOCRIT 37.8 % (36.0-47.0); HEMOGLOBIN 13.7 g/dL (12.0-15.5); LYMPHOCYTES % (AUTO) 32.4 % (13-45); MEAN CORPUSCULAR HEMOGLOBIN 33.9 pg (27.0-33.4); MEAN CORPUSCULAR HGB CONC 36.2 g/dL (32.0-36.0); MEAN CORPUSCULAR VOLUME 94 fl (80-97); MONOCYTES % (AUTO) 8.9 % (3-13); PLATELET COUNT 352 10^3/uL (150-450); RED BLOOD COUNT 4.03 10^6/uL (3.72-5.28); RED CELL DISTRIBUTION WIDTH 12.5 % (11.5-14.0); SEGMENTED NEUTROPHILS % (AUTO) 56.4 % (42-78); TOTAL CELLS COUNTED % (AUTO) 100 %; WHITE BLOOD COUNT 8.8 10^3/uL (4.0-10.5)
[2020-03-20 20:48] LABS: APPEARANCE,URINE CLEAR; BILIRUBIN,URINE NEGATIVE (NEGATIVE); COLOR,URINE YELLOW; GLUCOSE, URINE NEGATIVE (NEGATIVE); KETONES,URINE NEGATIVE (NEGATIVE); LEUKOCYTE ESTERASE,URINE NEGATIVE (NEGATIVE); NITRITE,URINE NEGATIVE (NEGATIVE); PROTEIN,URINE NEGATIVE (NEGATIVE); URINE SPECIFIC GRAVITY 1.013; UROBILINOGEN,URINE NEGATIVE mg/dL (<2.0)
[2020-03-20 21:02] LABS: ALBUMIN 4.8 g/dL (3.5-5.0); ALKALINE PHOSPHATASE 76 U/L (38-126); ANION GAP 10 (5-19); ASPARTATE AMINO TRANSFERASE 28 U/L (14-36); BILIRUBIN,DIRECT 0.1 mg/dL (0.0-0.4); BILIRUBIN,TOTAL 0.3 mg/dL (0.2-1.3); BLOOD UREA NITROGEN 12 mg/dL (7-20); CALCIUM 9.9 mg/dL (8.4-10.2); CARBON DIOXIDE 29 mmol/L (22-30); CHLORIDE 102 mmol/L (98-107); GLUCOSE 104 mg/dL (75-110); TOTAL PROTEIN 7.4 g/dL (6.3-8.2)
--- NOTE | 2020-03-20 23:56 | ER Document Report ---
ED GI/ - General Chief Complaint: Abdominal Pain Stated Complaint: UPPER LEFT STOMACH PAIN RAIDATING TO THE BACK Time Seen by Provider: 03/20/20 19:46 Primary Care Provider: KALLIE SNELL MD [Primary Care Provider] - Follow up as needed Mode of Arrival: Ambulatory Notes: Patient is a 59-year-old female that comes emergency department for chief complaint of left upper abdominal pain. Pain has been worsening for about 2 days now, she has reduced appetite and she has been eating less today because of it. Pain is constant and occasionally radiates around her left back. She denies vomiting, she reports reduced bowel movements but unremarkable bowel movement otherwise, she states she has had similar pain in the past with her gastritis. She has had a hysterectomy but no other bowel surgeries. She denies chest pain, shortness of breath, fever/chills. Past medical history of hyperlip idemia, hypothyroidism. She smokes, she admits she drinks a lot of caffeine, she takes daily aspirin. TRAVEL OUTSIDE OF THE [place] IN LAST 30 DAYS: No - Related Data Allergies/Adverse Reactions: sulfamethoxazole [From Bactrim] Allergy (Mild, Verified 03/20/20 19:44) itchy trimethoprim [From Bactrim] Allergy (Mild, Verified 03/20/20 19:44) itchy Home Medications: HTN. DIABETIS. JIGH LIPIDS Past Medical History - General Information source: Patient - Social History Smoking Status: Current Every Day Smoker Smoking Education Provided: Yes - <3 min Frequency of alcohol use: None Drug Abuse: None Lives with: Family Family History: Hypertension - Past Medical History Cardiac Medical History: Reports: Hx Hypercholesterolemia Denies: Hx Coronary Artery Disease, Hx Heart Attack, Hx Hypertension Pulmonary Medical History: Denies: Hx Asthma, Hx Bronchitis, Hx COPD, Hx Pneumonia Neurological Medical History: Denies: Hx Cerebrovascular Accident, Hx Seizures Endocrine Medical History: Reports: Hx Hypothyroidism Renal/ Medical History: Denies: Hx Peritoneal Dialysis GI Medical History: Reports: Hx Endoscopy - showed inflammation duodenum and stomach. Denies: Hx Hepatitis, Hx Hiatal Hernia, Hx Ulcer Musculoskeletal Medical History: Reports Hx Arthritis Psychiatric Medical History: Reports: Hx Anxiety Infectious Medical History: Denies: Hx Hepatitis Past Surgical History: Reports: Hx Hysterectomy. Denies: Hx Mastectomy, Hx Open Heart Surgery, Hx Pacemaker - Immunizations Hx Diphtheria, Pertussis, Tetanus Vaccination: Yes Review of Systems - Review of Systems Constitutional: No symptoms reported EENT: No symptoms reported Cardiovascular: No symptoms reported Respiratory: No symptoms reported Gastrointestinal: See HPI Genitourinary: No symptoms reported Female Genitourinary: No symptoms reported Musculoskeletal: No symptoms reported Skin: No symptoms reported Hematologic/Lymphatic: No symptoms reported Neurological/Psychological: No symptoms reported Physical Exam - Vital signs Vitals: Temp Pulse Resp BP Pulse Ox 98.0 F 80 18 154/78 H 96 03/20/20 19:42 03/20/20 19:42 03/20/20 19:42 03/20/20 19:42 03/20/20 19:42 - Notes Notes: GENERAL: Alert, interacts well. No acute distress. HEAD: Normocephalic, atraumatic. EYES: Pupils equal, round, and reactive to light. Extraocular movements intact. ENT: Oral mucosa moist, tongue midline. Oropharynx unremarkable. Airway patent. NECK: Full range of motion. Supple. Trachea midline. No lymphadenopathy. LUNGS: Clear to auscultation bilaterally, no wheezes, rales, or rhonchi. No respiratory distress. Non-tender chest wall. HEART: Regular rate and rhythm. No murmur ABDOMEN: Left upper quadrant pain noted although not severe, remaining abdomen is soft and benign, no distention, guarding, rigidity. Bowel sounds present throughout. EXTREMITIES: Moves all 4 extremities spontaneously. No edema, normal radial and dorsalis pedis pulses bilaterally. No cyanosis. BACK: no cervical, thoracic, lumbar midline tenderness. No saddle anesthesia, normal distal neurovascular exam. Moves all extremities in full range of motion. NEUROLOGICAL: Alert and oriented x3. Normal speech. Cranial nerves II through XII grossly intact. Strength 5/5 in all extremities. PSYCH: Normal affect, normal mood. SKIN: Warm, dry, normal turgor. No rashes or lesions noted. Course - Re-evaluation Re-evalutation: Patient is talkative and well-appearing. She does have specific and reproducible tenderness in the left upper quadrant. She reports a history of gastritis. She admits to large amounts of caffeine, current smoking, reduced appetite. She denies vomiting, flank pain, chest pain, fever, vital signs unremarkable. CBC, chemistry, lipase, urinalysis unremarkable. Based on her evaluation and work-up I do suspect gastritis. Discussed work-up details, discussed treatment, expectations, lifestyle modifications, follow-up, and return precautions in detail. Patient states appreciation and agreement. Stable and well-appearing at time of discharge. - Vital Signs Vital signs: Temp Pulse Resp BP Pulse Ox 98.0 F 80 18 159/71 H 96 03/20/20 19:42 03/20/20 19:42 03/20/20 19:42 03/21/20 00:01 03/20/20 19:42 - Laboratory Result Diagrams: 03/20/20 20:29 03/20/20 20:29 Laboratory results interpreted by me: 03/20/20 03/20/20 20:29 20:29 MCH 33.9 H MCHC 36.2 H Urine Ascorbic Acid 20 H Discharge - Discharge Clinical Impression: Left upper quadrant abdominal pain Condition: Stable Disposition: HOME, SELF-CARE Additional Instructions: Based on your work-up and evaluation I suspect that you have gastritis, inflammation of the upper gastrointestinal tract. You can take Zofran for nausea, take Carafate and Pepcid as prescribed to help treat this, you can take additional Rolaids, Tums, Maalox, etc. if needed. You can take Tylenol or the provided medication for pain. Avoid NSAIDs, alcohol, smoking, caffeine, spicy food. Start with clear fluids, progress to bland diet. Follow-up with primary care for additional evaluation and treatment including possible H. pylori testing or endoscopy. Return if you worsen including uncontrolled vomiting, vomiting blood, black stools, severe pain, fever of 100.4 or greater, or any other concerning or worsening symptoms. Prescriptions: Sucralfate [Carafate 1 gm Tablet] 1 gm PO QID #20 tablet Famotidine [Pepcid 20 mg Tablet] 20 mg PO BID #20 tablet Ondansetron [Zofran Odt 4 mg Tablet] 1 - 2 tab PO Q4H PRN #15 tab.rapdis PRN Reason: For Nausea/Vomiting Forms: Return to Work Referrals: KALLIE SNELL MD [Primary Care Provider] - Follow up as needed
[2020-03-20] MEDS ORDERED: FAMOTIDINE 20 MG TABLET PO ONE (23:59)
[2020-03-20] MEDS ORDERED: OXYCODONE-ACETAMINOPHEN 5-325 MG TABLET PO ONE (23:59)
[2020-03-20] MEDS ORDERED: PROMETHAZINE HCL 25 MG TABLET PO ONE (23:59)
[2020-03-20] MEDS ORDERED: SUCRALFATE 1 GM TABLET PO ONE (23:59)
[2020-03-21] MEDS ORDERED: HYDROCODONE/ACETAMINOPHEN 5-325 MG (6 TAB/ER DISP) PO PRN (00:01)
[2020-03-21 00:21] VITALS: BP 159/71
== END 2020-03-21 00:30 | disposition home or self-care (01) ==
LOC: ER 19:31
DX: R10.12 Left upper quadrant pain (principal); F17.200 Nicotine dependence, unspecified, uncomplicated; I10 Essential (primary) hypertension; E78.00 Pure hypercholesterolemia, unspecified; E11.9 Type 2 diabetes mellitus without complications; Z88.3 Allergy status to other anti-infective agents; Z90.710 Acquired absence of both cervix and uterus; Z79.82 Long term (current) use of aspirin
CPT/HCPCS: 36415; 80053; 81001; 83690; 85025; 87086; 99284

== ENCOUNTER → 2020-03-22 | Outpatient (CLI) | payer BC ==
--- NOTE | 2020-03-22 11:59 | RADIOLOGY REPORT (SQ) ---
EXAM DESCRIPTION: ACUTE ABDOMEN SERIES IMAGES COMPLETED DATE/TIME: 03/22/2020 11:51 am REASON FOR STUDY: LUQ PAIN COMPARISON: Chest x-ray dated 07/23/2017 NUMBER OF VIEWS: Three views. TECHNIQUE: Frontal chest, supine abdomen and upright/decubitus abdomen radiographic images acquired. LIMITATIONS: None. FINDINGS: CHEST: Lungs clear of infiltrates. FREE AIR: None. No abnormal gas collections. BOWEL GAS PATTERN: Constipation. No obstruction. CALCIFICATIONS: No suspicious calcifications. HARDWARE: None in the abdomen. SOFT TISSUES: No gross mass or suggestion of organomegaly. BONES: No acute fracture. No worrisome bone lesions. OTHER: No other significant finding. IMPRESSION: Constipation. No obstruction. TECHNICAL DOCUMENTATION: JOB ID: [id number] 2010 [facility]- All Rights Reserved Reading location - IP/workstation name: [email or web address]
[2020-03-22 12:55] LABS: ALBUMIN 4.5 g/dL (3.5-5.0); ALKALINE PHOSPHATASE 74 U/L (38-126); AMYLASE 68 U/L (30-110); ASPARTATE AMINO TRANSFERASE 24 U/L (14-36); BILIRUBIN,TOTAL 0.3 mg/dL (0.2-1.3)
== END ==
LOC: OD 11:03
PROVIDERS: ATTEND Family Medicine
DX: R10.12 Left upper quadrant pain (principal)
CPT/HCPCS: 36415; 74022; 80076; 82150; 83690